=== PATIENT | male | born 1985 | race Caucasian/White ===

== ENCOUNTER 2016-09-20 00:07 | Emergency (ER) | payer SELFPAY ==
[~2016-09-20] VITALS: Ht 175.3 cm; Wt 106.0 kg
[2016-09-20 00:13] VITALS: BP 161/118; PULSE 103; RESP 18; TEMP 98.2; O2SAT 97
[2016-09-20] MEDS ORDERED: SODIUM CHLOR 0.9% 1000 ML INJ 1,000 ML IV SCH ×3 (00:29→03:00)
[2016-09-20] MEDS ORDERED: ONDANSETRON HCL 4 MG/2 ML VIAL IVP ONE (00:30)
[2016-09-20] MEDS ORDERED: SODIUM CHLORIDE 0.9% FLUSH 10 ML FLUSH IV FLUSH PRN (00:30)
--- NOTE | 2016-09-20 00:33 | PD ---
HPI Chief Complaint: GI Complaint Time Seen by Provider: 00:29 Travel History International Travel<30 days: No Contact w/Intl Traveler<30days: No Traveled to known affect area: No History of Present Illness HPI The patient is a 31-year-old male that complains of periumbilical abdominal pain with vomiting starting at 8:30 this morning. The patient states his stomach starts hurting and this is the only time he gets nauseated and vomits. He had diarrhea once this morning. He has never had any abdominal surgery and still has his appendix and gallbladder. He does not have a history of bowel problems. The pain feels crampy/colicky and comes in waves. When the pain comes on he claims it is a 10 over 10 and feels like "gas pains". The states the patient spends about an hour every day in the bathroom having a diarrhea stool. He states this is happened now for 2 years since he got back from [facility]. The stools have never been bloody. He ate MREs every day for about 8 months when he was with the [employer] and [facility]. This is the first time he experienced this crampy pain. It happened after he ate a banana this morning. PFSH Past Medical History Gastrointestinal Disorders: Yes ("DIARRHEA DAILY") Medical other: Yes (TINNITUS) Psychiatric: Yes (PTSD) Tetanus Vaccination: < 5 Years Influenza Vaccination: No Past Surgical History Surgical History: No Previous Surgery Social History Alcohol Use: Yes (BEER DAILY) Tobacco Use: Yes (1 PPD) Substance Use: No Allergies-Medications (Allergen,Severity, Reaction): Coded Allergies: Penicillin (Verified Allergy, Intermediate, Hives, 09/20/16) Reported Meds & Prescriptions Reported Meds & Active Scripts Active No Active Prescriptions or Reported Medications Review of Systems Except as stated in HPI: all other systems reviewed are Neg Physical Exam Narrative GENERAL: The patient is alert, oriented 3 in minimal apparent distress at the time I see him. His heart rate is 103 and blood pressure 161/118 but the rest the vital signs are normal. SKIN: Focused skin assessment warm/dry. HEAD: Atraumatic. Normocephalic. EYES: Pupils equal and round. No scleral icterus. No injection or drainage. ENT: No nasal bleeding or discharge. Mucous membranes pink and moist. NECK: Trachea midline. No JVD. CARDIOVASCULAR: Regular rate and rhythm. No murmur appreciated. RESPIRATORY: No accessory muscle use. Clear to auscultation. Breath sounds equal bilaterally. GASTROINTESTINAL: Abdomen soft, with minimal discomfort to direct palpation in the midline epigastrium, nondistended. Hepatic and splenic margins not palpable. No guarding or rebound is present. MUSCULOSKELETAL: No obvious deformities. No clubbing. No cyanosis. No edema. NEUROLOGICAL: Awake and alert. No obvious cranial nerve deficits. Motor grossly within normal limits. Normal speech. PSYCHIATRIC: Appropriate mood and affect; insight and judgment normal. Rectal exam shows dark brown stool guaiac negative. Data Data Last Documented VS Vital Signs Date Time Temp Pulse Resp B/P Pulse Ox O2 Delivery O2 Flow Rate FiO2 09/20/16 03:37 92 16 156/94 98 Room Air 09/20/16 00:13 98.2 Orders Complete Blood Count With Diff (09/20/16 00:29) Comprehensive Metabolic Panel (09/20/16 00:29) Lipase (09/20/16 00:29) Urinalysis - C+S If Indicated (09/20/16 00:29) Abdomen, Flat & Upright (09/20/16 ) Iv Access Insert/Monitor (09/20/16 00:29) Ecg Monitoring (09/20/16 00:29) Oximetry (09/20/16 00:29) Ondansetron Inj (Zofran Inj) (09/20/16 00:30) Sodium Chlor 0.9% 1000 Ml Inj (Ns 1000 M (09/20/16 00:29) Sodium Chloride 0.9% Flush (Ns Flush) (09/20/16 00:30) Dicyclomine Inj (Bentyl Inj) (09/20/16 01:30) Sodium Chlor 0.9% 1000 Ml Inj (Ns 1000 M (09/20/16 01:45) Ondansetron Inj (Zofran Inj) (09/20/16 03:00) Hydromorphone Pf Inj (Dilaudid Pf Inj) (09/20/16 03:00) Magnesium Citrate Liq (Citroma Liq) (09/20/16 03:00) Sodium Chlor 0.9% 1000 Ml Inj (Ns 1000 M (09/20/16 03:00) Magnesium Citrate Liq (Citroma Liq) (09/20/16 03:45) Ct Abd/Pel W Iv Contrast(Rout) (09/20/16 04:38) Iohexol 350 Inj (Omnipaque 350 Inj) (09/20/16 05:05) Labs Laboratory Tests Test 09/20/16 09/20/16 00:35 01:50 White Blood Count 11.5 TH/MM3 Red Blood Count 4.95 MIL/MM3 Hemoglobin 16.6 GM/DL Hematocrit 50.5 % Mean Corpuscular Volume 102.0 FL Mean Corpuscular Hemoglobin 33.5 PG Mean Corpuscular Hemoglobin 32.8 % Concent Red Cell Distribution Width 13.7 % Platelet Count 335 TH/MM3 Mean Platelet Volume 8.3 FL Neutrophils (%) (Auto) 69.2 % Lymphocytes (%) (Auto) 19.1 % Monocytes (%) (Auto) 7.9 % Eosinophils (%) (Auto) 0.6 % Basophils (%) (Auto) 3.2 % Neutrophils # (Auto) 7.9 TH/MM3 Lymphocytes # (Auto) 2.2 TH/MM3 Monocytes # (Auto) 0.9 TH/MM3 Eosinophils # (Auto) 0.1 TH/MM3 Basophils # (Auto) 0.4 TH/MM3 CBC Comment DIFF FINAL Differential Comment Sodium Level 141 MEQ/L Potassium Level 4.0 MEQ/L Chloride Level 105 MEQ/L Carbon Dioxide Level 26.9 MEQ/L Anion Gap 9 MEQ/L Blood Urea Nitrogen 9 MG/DL Creatinine 1.20 MG/DL Estimat Glomerular Filtration 71 ML/MIN Rate Random Glucose 122 MG/DL Calcium Level 8.9 MG/DL Total Bilirubin 0.8 MG/DL Aspartate Amino Transf 28 U/L (AST/SGOT) Alanine Aminotransferase 76 U/L (ALT/SGPT) Alkaline Phosphatase 82 U/L Total Protein 8.1 GM/DL Albumin 4.0 GM/DL Lipase 94 U/L Urine Color DUONG Urine Turbidity CLEAR Urine pH 5.5 Urine Specific Morrison 1.035 Urine Protein 30 mg/dL Urine Glucose (UA) NEG mg/dL Urine Ketones NEG mg/dL Urine Occult Blood NEG Urine Nitrite NEG Urine Bilirubin NEG Urine Leukocyte Esterase NEG Urine WBC 0-2 /hpf Urine Squamous Epithelial 0-5 /hpf Cells Urine Mucus MANY /lpf Microscopic Urinalysis Comment CULT NOT INDICATED MDM Medical Decision Making Medical Screen Exam Complete: Yes Emergency Medical Condition: Yes Medical Record Reviewed: Yes Interpretation(s) The complete metabolic profile shows a GFR of 71 but is otherwise unremarkable. The lipase is normal. The CBC shows a minimal elevation of the white count at 11,500 but is otherwise unremarkable. The flat and upright abdomen is normal. The CT of the abdomen/pelvis with IV contrast shows some soft tissue inflammation in the right lower quadrant primarily around the terminal ileum. This suggests some type of terminal ileitis such as Crohn's disease. The retrocecal appendix appears normal. Differential Diagnosis Small bowel obstruction, intestinal colic, gastroenteritis, colitis, ileitis, bacterial enteritis Narrative Course The patient has inflammation of the terminal ileum. He has had, according to his , diarrhea for 2 years requiring him to spend a lot of time in the bathroom. This may be an exacerbation of Crohn's disease. He will need to follow-up with a camera storage clerk as soon as possible. I will try prednisone on a tapered course for 8 days. Diagnosis Primary Impression: Inflammatory bowel disease Med/Other Pt SpecificInfo: Prescription(s) given Scripts Prednisone 50 Mg Tab50 Mg PO BID #12 TAB Ref 0 Prov:Holland Basilio MD 09/20/16 Disposition: 01 DISCHARGE HOME Condition: Stable Holland Basilio MD Sep 20, 2016 00:33
[2016-09-20 00:51] LABS: AUTOMATED NEUTROPHIL # 7.9 TH/MM3 (1.8-7.7); BASOPHIL # 0.4 TH/MM3 (0-0.2); BASOPHIL % 3.2 % (0.0-2.0); EOSINOPHIL # 0.1 TH/MM3 (0-0.4); EOSINOPHIL % 0.6 % (0.0-4.0); HEMATOCRIT 50.5 % (39.0-51.0); HEMO FLAGS DIFF FINAL; LYMPH % 19.1 % (9.0-44.0); LYMPHOCYTE # 2.2 TH/MM3 (1.0-4.8); MEAN CORPUSCULAR HEMOGLOBIN 33.5 PG (27.0-34.0); MEAN CORPUSCULAR HGB CONC 32.8 % (32.0-36.0); MONO % 7.9 % (0.0-8.0); NEUT % 69.2 % (16.0-70.0); PLATELET COUNT 335 TH/MM3 (150-450); RED BLOOD COUNT 4.95 MIL/MM3 (4.50-5.90); RED CELL DISTRIBUTION WIDTH 13.7 % (11.6-17.2); WHITE BLOOD COUNT 11.5 TH/MM3 (4.0-11.0)
--- NOTE | 2016-09-20 01:03 | RADRPT ---
EXAM DATE/TIME: 09/20/2016 00:40 [facility] COMPARISON: No previous studies available for comparison. INDICATIONS : Abdominal pain in umbilicus area, along with nausea and diarrhea. MEDICAL HISTORY : None. SURGICAL HISTORY : None. ENCOUNTER: Initial ACUITY: 1 day PAIN SCORE: 10/10 LOCATION: middle abdomen FINDINGS: Supine and upright views of the abdomen were performed. The abdominal bowel gas pattern is normal. No air fluid levels are seen. No abnormal masses, calcifications, or organomegaly is seen. The visu alized lower lungs are clear. No evidence of free intraperitoneal gas. The osseous structures are u nremarkable. CONCLUSION: Normal examination. Tez Monge MD on September 20, 2016 at 1:01 Board Certified Radiologist. This report was verified electronically.
[2016-09-20 01:06] LABS: CHLORIDE 105 MEQ/L (98-107); SODIUM (NA) 141 MEQ/L (136-145)
[2016-09-20 01:10] LABS: ANION GAP 9 MEQ/L (5-15); BICARBONATE 26.9 MEQ/L (21.0-32.0); BLOOD UREA NITROGEN 9 MG/DL (7-18)
[2016-09-20 01:12] LABS: ALT (GPT) 76 U/L (12-78)
[2016-09-20 01:13] LABS: AST (GOT) 28 U/L (15-37); GLOMERULAR FILTRATION RATE 71 ML/MIN (>89)
[2016-09-20 01:14] LABS: TOTAL BILIRUBIN ADULT 0.8 MG/DL (0.2-1.0)
[2016-09-20 01:15] LABS: ALKALINE PHOSPHATASE 82 U/L (45-117)
[2016-09-20] MEDS ORDERED: DICYCLOMINE HCL 20 MG/2 ML VIAL IM ONE (01:30)
[2016-09-20 01:59] VITALS: BP 157/96; PULSE 82; RESP 18; O2SAT 99
[2016-09-20 01:59] LABS: BLOOD, URINE NEG (NEG); GLUCOSE,URINE NEG (NEG); KETONE, URINE NEG (NEG); NITRITE,URINE NEG (NEG); PH, URINE 5.5 (5.0-8.5)
[2016-09-20 02:05] LABS: URINE COLOR AMBER (YELLW/STRAW)
[2016-09-20 02:06] LABS: COMMENT (UR) CULT NOT INDICATED; CULTURE IF INDICATED CULT NOT INDICATED; MUCUS URINE MANY /lpf (OCC); SQUAMOUS EPITHELIAL CELL URINE 0-5 /hpf (0-5); WBC, URINE 0-2 /hpf (0-5)
[2016-09-20] MEDS ORDERED: MAGNESIUM CITRATE SOLN 300 ML BTL PO ONE ×2 (03:00→03:45)
[2016-09-20] MEDS ORDERED: ONDANSETRON HCL 4 MG/2 ML VIAL IV ONE (03:00)
[2016-09-20] MEDS ORDERED: HYDROmorphone HCL PF 1 MG/ML VIAL IVP ONE (03:00)
[2016-09-20 03:13] VITALS: BP 184/93; PULSE 98; RESP 16; O2SAT 98
[2016-09-20 03:37] VITALS: BP 156/94; PULSE 92; RESP 16; O2SAT 98
[2016-09-20] MEDS ORDERED: IOHEXOL 350 MG/ML 10 ML VIAL (for RAD DIAG) IV ONE (05:05)
--- NOTE | 2016-09-20 05:36 | RADRPT ---
EXAM DATE/TIME: 09/20/2016 04:54 [facility] COMPARISON: No previous studies available for comparison. INDICATIONS : Umbilical pain with vomiting. IV CONTRAST: 95 cc Omnipaque 350 (iohexol) IV ORAL CONTRAST: No oral contrast ingested. RADIATION DOSE: 21.68 CTDIvol (mGy) MEDICAL HISTORY : None SURGICAL HISTORY : None. ENCOUNTER: Initial ACUITY: 1 day PAIN SCALE: 10/10 LOCATION: Umbilical TECHNIQUE: Volumetric scanning of the abdomen and pelvis was performed. Using automated exposure control and ad justment of the mA and/or kV according to patient size, radiation dose was kept as low as reasonably achievable to obtain optimal diagnostic quality images. DICOM format image data is available electro nically for review and comparison. FINDINGS: LOWER LUNGS: The visualized lower lungs are clear. LIVER: Homogeneous density without lesion. There is no dilation of the biliary tree. No calcified gallston es. SPLEEN: Normal size without lesion. PANCREAS: Within normal limits. KIDNEYS: Normal in size and shape. There is no mass, stone or hydronephrosis. ADRENAL GLANDS: Within normal limits. VASCULAR: There is no aortic aneurysm. BOWEL/MESENTERY: There is some soft tissue inflammation in the right lower quadrant primarily around the terminal ileu m. There is a retrocecal appendix with normal dimension and no surrounding inflammatory stranding to suggest appendicitis ABDOMINAL WALL: Within normal limits. RETROPERITONEUM: There is no lymphadenopathy. BLADDER: No wall thickening or mass. REPRODUCTIVE: Within normal limits. INGUINAL: There is no lymphadenopathy or hernia. MUSCULOSKELETAL: Within normal limits for patient age. CONCLUSION: There is some soft tissue inflammation in the right lower quadrant primarily around the terminal ileu m. This suggest some type of terminal ileitis such Crohn's disease. There is a retrocecal appendix with normal dimension and no surrounding inflammatory stranding to suggest appendicitis Tez Monge MD on September 20, 2016 at 5:32 Board Certified Radiologist. This report was verified electronically.
[2016-09-20] MEDS ORDERED: PRED50 PO (05:57)
[2016-09-20] MEDS ORDERED: predniSONE 20 MG TAB PO ONE (06:00)
[2016-09-20] MEDS ORDERED: TRAM50TA PO (06:04)
[2016-09-20 06:22] VITALS: BP 148/90
== END 2016-09-20 06:24 | disposition home or self-care (01) ==
LOC: PHED 00:07
DX: K63.89 Other specified diseases of intestine (principal); R11.2 Nausea with vomiting, unspecified; R19.7 Diarrhea, unspecified; F17.200 Nicotine dependence, unspecified, uncomplicated; Z87.19 Personal history of other diseases of the digestive system; Z86.69 Personal history of other diseases of the nervous system and sense organs; Z86.59 Personal history of other mental and behavioral disorders
CPT/HCPCS: 74020; 74177; 80053; 81001; 83690; 85025; 96361; 96372; 96374; 96375; 96376; 99285; J0500; J1170; J2405; J7030; J7512; Q9967